=== PATIENT | female | born 1990 | race Caucasian/White ===

== ENCOUNTER 2016-09-05 16:57 | Emergency (ER) | payer SELFPAY ==
[2016-09-05 17:08] VITALS: BP 113/72
--- NOTE | 2016-09-05 17:13 | ER Document Report ---
ED Medical Screen (RME) - General Stated Complaint: FACIAL SWELLING Time seen by provider: 17:12 Mode of Arrival: Ambulatory Information source: Patient Notes: 26-year-old female complaining of a broken tooth with some gingival swelling above. She is complaining of some facial swelling. There is small abscesses above the first bicuspid top left. No fever. TRAVEL OUTSIDE OF THE [place] IN LAST 30 DAYS: No - Related Data Allergies/Adverse Reactions: [place] Juice [From Thickened [place] Juice] Allergy (Severe, Verified 09/12/13 08 :09) Past Medical History - Past Medical History Cardiac Medical History: Denies: Hx Hypertension Endocrine Medical History: Denies: Hx Diabetes Mellitus Type 2, Hx Hyperthyroidism, Hx Hypothyroidism Past Surgical History: Reports: Hx Orthopedic Surgery - Immunizations Hx Diphtheria, Pertussis, Tetanus Vaccination: Yes Physical Exam - Vital signs Vitals: Temp Pulse Resp BP Pulse Ox 98.0 F 70 16 113/72 100 09/05/16 17:07 09/05/16 17:07 09/05/16 17:07 09/05/16 17:07 09/05/16 17:07 Course - Vital Signs Vital signs: Temp Pulse Resp BP Pulse Ox 98.0 F 70 16 113/72 100 09/05/16 17:07 09/05/16 17:07 09/05/16 17:07 09/05/16 17:07 09/05/16 17:07
--- NOTE | 2016-09-05 17:36 | ER Document Report ---
ED Oral Problem - General Mode of Arrival: Ambulatory Information source: Patient TRAVEL OUTSIDE OF THE [place] IN LAST 30 DAYS: No - HPI Patient complains to provider of: Toothache - and associated swelling Onset: Other - 4 days ago Associated symptoms: Other - see above - General Chief Complaint: Facial Swelling Stated Complaint: FACIAL SWELLING Notes: 26 year old female presents to the ED complaining of a broken left upper pre- molar tooth and associated swelling to the gingiva and face that started earlier today. Patient states that she was unaware of the broken tooth and didn' t notice it until 4 days ago. Patient's last menstrual period was 08/26/2016 and states that it was normal and on time. (LINDA CONNER) - Related Data Allergies/Adverse Reactions: [place] Juice [From Thickened [place] Juice] Allergy (Severe, Verified 09/12/13 08 :09) Past Medical History - General Information source: Patient - Social History Smoking Status: Current Every Day Smoker Family History: Thyroid Disfunction Renal/ Medical History: Denies: Hx Peritoneal Dialysis Past Surgical History: Reports: Hx Orthopedic Surgery - right dickinson for a cyst removal - Immunizations Hx Diphtheria, Pertussis, Tetanus Vaccination: Yes Review of Systems - Review of Systems Constitutional: No symptoms reported EENT: See HPI, Mouth pain - left upper molar, Mouth swelling - left upper gingiva and some facial swelling Cardiovascular: No symptoms reported Respiratory: No symptoms reported Gastrointestinal: No symptoms reported Genitourinary: No symptoms reported Female Genitourinary: No symptoms reported Musculoskeletal: No symptoms reported Skin: No symptoms reported Hematologic/Lymphatic: No symptoms reported Neurological/Psychological: No symptoms reported Physical Exam - Vital signs Interpretation: Normal - General General appearance: Alert In distress: None - HEENT Head: Normocephalic, Atraumatic Eyes: Normal Extraocular movements intact: Yes Pupils: PERRL Mouth/Lips: Dental fracture - Posterior aspect of the left upper 3rd molar is broken off, but is non-tender., Other - Left upper 1st pre-molar tooth is tender. Gingiva surrounding the tooth is swollen, no sign of an abscess.. No: Normal - Respiratory Respiratory status: No respiratory distress - Cardiovascular Rhythm: Regular - Abdominal Inspection: Normal - Back Back: Normal - Extremities General upper extremity: Normal inspection, Normal ROM General lower extremity: Normal inspection, Normal ROM - Neurological Neuro grossly intact: Yes - Psychological Associated symptoms: Normal affect, Normal mood - Skin Skin Temperature: Warm Skin Moisture: Dry Skin Color: Normal - Vital signs Vitals: Temp Pulse Resp BP Pulse Ox 98.0 F 70 16 113/72 100 09/05/16 17:07 09/05/16 17:07 09/05/16 17:07 09/05/16 17:07 09/05/16 17:07 (ELDON NEWTON) Discharge - Discharge Clinical Impression: Toothache Additional Instructions: Toothache: Your pain is due to dental decay. The tooth must be repaired in order for you to feel better. You will, therefore, be referred to a dentist. Severe swelling or drainage around a tooth usually means a deep dental abscess. This also requires evaluation and treatment by the dentist, but antibiotics may be prescribed while awaiting dental treatment. You should be rechecked immediately if you develop major swelling of the face, increasing pain, a lump in the jaw or gums, headache, or fever. TAKE THE MEDICATION PRESCRIBED. TAKE MOTRIN 600mg EVERY EIGHT HOURS. FOLLOW UP WITH A DENTIST THIS WEEK. RETURN TO THE EMERGENCY ROOM IF ANY NEW OR WORSENING SYMPTOMS. Prescriptions: Hydrocodone/Acetaminophen [[place] 5-325 mg Tablet] 1 tab PO Q4 PRN #15 tablet PRN Reason: Penicillin V Potassium [Penicillin Vk 500 mg Tablet] 500 mg PO QID #28 tablet Scribe Attestation: 09/05/16 17:38 I personally performed the services described in the documentation, reviewed and edited the documentation which was dictated to the scribe in my presence, and it accurately records my words and actions. (ELDON NEWTON) Scribe Documentation - Scribe Written by Lisa:: Lisa Allen, 09/05/2016 1746 acting as scribe for :: Delio
== END 2016-09-05 17:43 | disposition home or self-care (01) ==
LOC: ER 16:57
DX: K08.89 Other specified disorders of teeth and supporting structures (principal); R22.0 Localized swelling, mass and lump, head; S02.5XXA Fracture of tooth (traumatic), initial encounter for closed fracture; X58.XXXA Exposure to other specified factors, initial encounter; F17.210 Nicotine dependence, cigarettes, uncomplicated
CPT/HCPCS: 99283

== ENCOUNTER → 2018-03-23 | Outpatient (CLI) | payer SELFPAY ==
--- NOTE | 2018-03-23 14:13 | RADIOLOGY REPORT (SQ) ---
EXAM DESCRIPTION: U/S [id number] TRNABD 1GES W/ODOP COMPLETED DATE/TIME: 03/23/2018 1:53 pm REASON FOR STUDY: Z34.81 ENCOUNTER FOR SUPRVSN OF NORMAL , FIRST TRIMESTER Z34.81 ENCOUNTE R FOR SUPRVSN OF NORMAL , FIRST TRIM COMPARISON: None. TECHNIQUE: Transabdominal static and realtime grayscale images acquired of the pelvis. Additional se lected spectral and color Doppler images recorded. All images stored [facility] PACs. [facility]. CLINICAL DATES: LMP is 01/17/2018. 9 weeks 2 days. LIMITATIONS: None. FINDINGS: FETUS: Living intrauterine . ULTRASOUND EGA: 7 weeks 0 days ULTRASOUND NINFA: 11/09/2018 CRL: 1 cm FHR: 157 beats per minute. SUBCHORIONIC BLEED: No SIZE OF BLEED: Not applicable. UTERUS: No masses. No anomalies. CERVICAL LENGTH: Not measured. Closed. RIGHT ADNEXA: Ovary not seen. No adnexal free fluid. No adnexal masses. LEFT ADNEXA: Normal ovary with normal vascular flow. No adnexal free fluid. No adnexal masses. FREE FLUID: None. OTHER: No other significant finding. IMPRESSION: LIVING INTRAUTERINE . EGA 7 weeks 0 days. Trimester of : First - 0 to 13 weeks. TECHNICAL DOCUMENTATION: JOB ID: [id number] [employer]- All Rights Reserved rev Reading location - IP/workstation name: [email or web address]
== END ==
LOC: RAD 12:55
PROVIDERS: ATTEND Nurse Practitioner
DX: Z34.81 Encounter for supervision of other normal pregnancy, first trimester (principal)
CPT/HCPCS: 76801

== ENCOUNTER 2018-06-18 03:03 | Emergency (ER) | payer MEDICAID ==
[2018-06-18 04:16] LABS: APPEARANCE,URINE SLIGHTLY-CLOUDY; BILIRUBIN,URINE NEGATIVE (NEGATIVE); COLOR,URINE STRAW; GLUCOSE, URINE NEGATIVE (NEGATIVE); KETONES,URINE NEGATIVE (NEGATIVE); LEUKOCYTE ESTERASE,URINE TRACE (NEGATIVE); NITRITE,URINE NEGATIVE (NEGATIVE); PROTEIN,URINE NEGATIVE (NEGATIVE); URINE SPECIFIC GRAVITY 1.005; UROBILINOGEN,URINE NEGATIVE mg/dL (<2.0)
--- NOTE | 2018-06-18 04:53 | ER Document Report ---
ED General - General Chief Complaint: OB Problem (<20wks) Stated Complaint: ABDOMINAL PAIN Time Seen by Provider: 06/18/18 03:30 Notes: Patient is a 27-year-old female who presents to the emergency department with abdominal pain and vaginal bleeding after intercourse. She is 19 weeks and 4 days . She denies any foul discharge. Denies dysuria. Thus far she has not had any complications with her . She is receiving care. She states that her abdominal pain feels like a sharp pain that comes and goes. Her pain is on the sides of her abdomen. Her previous she was diagnosed with preeclampsia, in which she was induced at 37 weeks. That was 4 years ago. She denies smoking, drinking, or illicit drug use. TRAVEL OUTSIDE OF THE [place] IN LAST 30 DAYS: No - Related Data Allergies/Adverse Reactions: [place] Juice [From Thickened [place] Juice] Allergy (Severe, Verified 09/12/13 08 :09) Past Medical History - General Information source: Patient - Social History Smoking Status: Never Smoker Frequency of alcohol use: None Drug Abuse: None Family History: Thyroid Disfunction Patient has suicidal ideation: No Patient has homicidal ideation: No - Past Medical History Cardiac Medical History: Denies: Hx Hypertension Endocrine Medical History: Denies: Hx Diabetes Mellitus Type 2, Hx Hyperthyroidism, Hx Hypothyroidism Renal/ Medical History: Denies: Hx Peritoneal Dialysis Past Surgical History: Reports: Hx Orthopedic Surgery - right dickinson for a cyst removal - Immunizations Hx Diphtheria, Pertussis, Tetanus Vaccination: Yes Review of Systems - Review of Systems Notes: REVIEW OF SYSTEMS: CONSTITUTIONAL : Denies recent illness. Denies recent unintentional weight loss. Denies fever, chills, or sweats. EENT: Denies eye, ear, throat, or mouth pain, discharge, or symptoms. Denies nasal or sinus congestion. CARDIOVASCULAR: Denies chest pain. RESPIRATORY: Denies shortness of breath, cough, congestion, difficulty breathing , or wheezing. GASTROINTESTINAL: Denies nausea, vomiting, and diarrhea. Denies abdominal pain. Denies constipation. Last BM: 06/17/2018 GENITOURINARY: Denies difficulty urinating, burning, blood in urine, urgency or frequency. FEMALE GENITOURINARY: See HPI MUSCULOSKELETAL: Denies neck and back pain. Denies joint pain or swelling. SKIN: Denies rash, itchiness, or lesions HEMATOLOGIC : Denies easy bruising or bleeding. LYMPHATIC: Denies swollen, painful, enlarged glands. NEUROLOGICAL: Denies no numbness or tingling denies weakness. Denies headache. Denies altered mental status. Denies alteration in speech. PSYCHIATRIC: Denies stress, anxiety, alteration in sleep patterns, or depression. All other systems reviewed and negative. Physical Exam - Vital signs Vitals: Temp Pulse Resp BP Pulse Ox 98.1 F 85 16 125/66 100 06/18/18 03:07 06/18/18 03:07 06/18/18 03:07 06/18/18 03:07 06/18/18 03:07 - Notes Notes: PHYSICAL EXAMINATION: GENERAL: Appears well, healthy, well-nourished, no acute distress. HEAD: Normocephalic, atraumatic. EYES: PERRL, conjunctiva normal, all extraocular movements intact, sclera nonicteric ENT: Moist mucous membranes. NECK: Supple, no noticeable swelling, redness, rash. Normal range of motion. LUNGS: Equal breath sounds bilaterally and clear to auscultation. No wheezes rales or rhonchi. CARDIOVASCULAR: S1-S2, regular rate, regular rhythm. Radial pulses 2+, normal. ABDOMEN: Noticeably . Normoactive bowel sounds. Soft, nontender, no guarding, no rebound tenderness, and no masses palpated. EXTREMITIES: Normal strength and range of motion, no pitting or edema. No cyanosis. NEUROLOGICAL: Moves all extremities upon command. Strength 5/5 in all extremities. PSYCH: Normal mood, normal affect. SKIN: Warm, dry. No rash, lesions, ulcerations noted. Normal skin turgor. Bedside ultrasound: Intrauterine noted with fetus. cardiac movement noted on ultrasound. Course - Re-evaluation Re-evalutation: Differential diagnosis includes placenta previa, placenta abruptio, post intercourse vaginal bleeding, and urinary tract infection. 06/18/18 05:00 Patient's urinalysis is unremarkable. Her abdominal ultrasound shows a normal intrauterine . There is no placenta previa, placenta abruptio, and her cervix is closed. I suspect her vaginal bleeding is most likely from increased vasculature of her uterus from . Having intercourse might have disrupted some capillaries at her cervix. These findings have been discussed with the patient. She is safe for discharge. Discharge instructions with pelvic precautions were given at bedside. She verbalized understanding. Her next appointment with her RESIDENT CARE PROVIDER is June 23. She states she will discuss this information with her RESIDENT CARE PROVIDER. - Vital Signs Vital signs: Temp Pulse Resp BP Pulse Ox 97.9 F 89 16 104/61 100 06/18/18 05:50 06/18/18 05:50 06/18/18 05:50 06/18/18 05:50 06/18/18 05:50 - Laboratory Laboratory results interpreted by me: 06/18/18 04:00 Ur Leukocyte Esterase TRACE H Discharge - Discharge Clinical Impression: Vaginal bleeding Abdominal pain Qualifiers: Abdominal location: generalized Qualified Code(s): R10.84 - Generalized abdominal pain Condition: Stable Disposition: HOME, SELF-CARE Additional Instructions: You have been seen today for abdominal pain and vaginal bleeding. The most likely cause of your abdominal pain is from your abdomen growing your baby. This is called ligamentous pain. You may take Tylenol 650 mg every 6 hours as needed for the pain. Your vaginal bleeding is most likely from having intercourse tonight. The ultrasound you had tonight showed her is normal. Please follow-up with your RESIDENT CARE PROVIDER at your next appointment. Let them know that you were seen in the emergency department. If you develop a fever greater than 100.4 F, have worsening abdominal pain, have vaginal bleeding that soaks up an entire pad, or have any concerns that are worrisome to you, please return to the emergency department. Also, do not have sex and do not place anything in your vagina until you see your RESIDENT CARE PROVIDER. Forms: Return to Work Referrals: [facility] [Provider Group] - Follow up as needed
--- NOTE | 2018-06-18 05:15 | RADIOLOGY REPORT (SQ) ---
EXAM DESCRIPTION: US LIMITED COMPLETED DATE/TME: 06/18/2018 03:46 CLINICAL HISTORY: 27 years Female, vaginal bleeding Comparison:03/23/2018 TECHNIQUE/LIMITATION: Targeted OB sonogram for requested parameters only. FINDINGS: EGA is 19w4d with NINFA of 11/08/18 EFW is 303g Cardiac activity: 147-bpm. LVP: 4.4-cm, clear Placenta: Anterior. No evidence of abruption. No placenta previa. Cervical length: 4.1-cm. Closed appearance. IMPRESSION: Targeted OB sonogram for requested parameters
[2018-06-18 05:50] VITALS: BP 104/61
== END 2018-06-18 05:50 | disposition home or self-care (01) ==
LOC: ER 03:03
DX: O20.9 Hemorrhage in early pregnancy, unspecified (principal); O26.892 Other specified pregnancy related conditions, second trimester; R10.84 Generalized abdominal pain; Z3A.19 19 weeks gestation of pregnancy; Z87.59 Personal history of other complications of pregnancy, childbirth and the puerperium; Z91.018 Allergy to other foods
CPT/HCPCS: 76815; 81001; 99284

== ENCOUNTER 2018-08-20 10:48 | Emergency (ER) | payer MEDICAID ==
[2018-08-20] MEDS ORDERED: LIDOCAINE 5% (700 MG) TRANSDERMAL ADH..PATCH TP ONE (12:54)
[2018-08-20] MEDS ORDERED: ONDANSETRON 4 MG TAB.RAPDIS PO ONE (12:54)
[2018-08-20] MEDS ORDERED: ACETAMINOPHEN 325 MG TABLET PO ONE (12:55)
--- NOTE | 2018-08-20 13:00 | ER Document Report ---
HPI - HPI Time Seen by Provider: 08/20/18 12:54 Pain Level: 3 Notes: Patient is a 28-year-old female who is approximately 28 weeks who presents to the emergency department complaining of left upper buttock pain, mild low back pain, nasal congestion/discharge, body ache, dry nonproductive cough that began yesterday. Patient states that she is able to eat and drink without difficulty, but does have a decreased p.o. intake. She is urinating normally and having normal bowel movements. She has not had any vaginal discharge, odor, or bleeding. Back pain increased with twisting. On occ she will notice low back pain that will radiate down the left buttock and left prox leg. Patient states that she has not had any history of spinal abscess or any recent injections in her spine. She denies IV drug abuse or other significant past medical history. Denies any headache, fever, neck pain, sore throat, chest pain, palpitations, syncope, shortness of breath, wheeze, dyspnea, abdominal pain, nausea/vomiting/diarrhea, urinary retention, dysuria, hematuria, loss of control of bowel or bladder, numbness/tingling, saddle anesthesia, muscle paralysis/weakness, or rash. - ROS Systems Reviewed and Negative: Yes All other systems reviewed and negative - REPRODUCTIVE Reproductive: REPORTS: : Past Medical History - Social History Smoking Status: Former Smoker Family History: Thyroid Disfunction Patient has suicidal ideation: No Patient has homicidal ideation: No - Past Medical History Cardiac Medical History: Denies: Hx Hypertension Endocrine Medical History: Denies: Hx Diabetes Mellitus Type 2, Hx Hyperthyroidism, Hx Hypothyroidism Renal/ Medical History: Denies: Hx Peritoneal Dialysis Past Surgical History: Reports: Hx Orthopedic Surgery - right dickinson for a cyst removal - Immunizations Hx Diphtheria, Pertussis, Tetanus Vaccination: Yes Vertical Provider Document - CONSTITUTIONAL Agree With Documented VS: Yes Notes: PHYSICAL EXAMINATION: GENERAL: Well-appearing, well-nourished and in no acute distress. A&Ox4. Answers questions appropriately. Moves comfortably w/o notable distress HEAD: Atraumatic, normocephalic. EYES: Pupils equal round and reactive to light, extraocular movements intact, sclera anicteric, conjunctiva are normal. ENT: EAC clear b/l. TM's intact b/l without erythema, fluid, or perforation. Nares patent and with clear discharge. oropharynx no erythema without exudates. No tonsilar hypertrophy without erythema or exudate. No palatine shift. Uvula midline. No tongue protrusion. No drooling, hoarseness, or airway compromise. Moist mucous membranes. No sinus tenderness. NECK: Normal range of motion, supple without lymphadenopathy. No rigidity/meningismus. LUNGS: Breath sounds clear to auscultation bilaterally and equal. No wheezes rales or rhonchi. HEART: Regular rate and rhythm without murmurs, rubs, gallops. ABDOMEN: Soft, nontender, nondistended abdomen. No guarding, no rebound. Normal bowel sounds present. No CVA tenderness bilaterally. Musculoskeletal: LE's b/l: FROM to passive/active. Strength 5+/5. No deficits noted. No bony tenderness of extremities. Back: FROM to passive/active. Strength 5+/5. No vertebral point tenderness, stepoffs, or deformities. No other bony tenderness, erythema, swelling, or ecchymosis. SLR negative b/l. + left SI jt tenderness. No foot drop Extremities: No cyanosis, clubbing, or edema b/l. Peripheral pulses 2+. Capillary refill less than 2 seconds. NEUROLOGICAL: Normal speech, normal gait. Normal sensory, motor exams. Reflexes 2+ b/l. PSYCH: Normal mood, normal affect. SKIN: Warm, Dry, normal turgor, no rashes or lesions noted. - INFECTION CONTROL TRAVEL OUTSIDE OF THE [place] IN LAST 30 DAYS: No Course - Re-evaluation Re-evalutation: 08/20/18 13:55 Patient is an afebrile, well-hydrated, 28-year-old female who presents to the ED with acute low back pain/sacroiliitis, and influenza. Vitals are acceptable. PE is otherwise unremarkable for any focal neurological deficits. Rapid influenza +. Patient was given Tylenol and a Lidoderm patch. UA unremarkable. heart tones appropriate. She has no significant tachycardia, tachypnea, or hypoxia. She is nontoxic-appearing and is tolerating p.o. without difficulties. There are no signs of spinal infection. No other red flag symptoms noted. No other labs or imaging warranted at this time based on H&P. Low suspicion for any meningitis, fracture, expanding/ruptured AAA, cauda equina syndrome, epidural mass lesion/abscess, herniated disc causing severe spinal stenosis, or other systemic infection at this time. Patient is aware that this condition can change from initial presentation and that she needs monitor symptoms closely for any acute changes. Rx for tamiflu. Conservative measures otherwise for symptoms. Recheck with your PCM/OBGYN in 2-3 days. Consider c onsult with orthopedic/physical therapy. Return to the ED with any worsening/concerning symptoms otherwise as reviewed discharge. Patient is in agreement. - Vital Signs Vital signs: Temp Pulse Resp BP Pulse Ox 99.5 F 96 18 121/69 100 08/20/18 11:11 08/20/18 11:11 08/20/18 11:11 08/20/18 11:11 08/20/18 11:11 Discharge - Discharge Clinical Impression: Influenza Low back pain Qualifiers: Chronicity: acute Back pain laterality: bilateral Sciatica presence: unspecified whether sciatica present Qualified Code(s): M54.5 - Low back pain Condition: Stable Disposition: HOME, SELF-CARE Instructions: Low Back Pain ([facility]), Stretching Exercises for the Back ([facility]) Additional Instructions: Maintain adequate fluid intake Take meds as directed tylenol as needed, avoid ibuprofen/aleve rest, ice, heat, massage, light stretches over the counter cold medication as needed for symptoms Humidified air may help Wash your hands regularly Wear a mask when coughing F/u: with your PCM/OBGYN in 3-5 days for a recheck Return to the ED with any worsening symptoms and/or development of fever, headache, chest pain, palpitations, syncope, shortness of breath, trouble breathing, abdominal pain, n/v/d, blood in stool/urine, vaginal bleeding, loss of control of bowel/bladder, urinary retention, muscle weakness/paralysis, saddle anesthesia, numbness/tingling, or other worsening symptoms that are concerning to you. Prescriptions: Oseltamivir Phosphate [Tamiflu 75 mg Capsule] 75 mg PO BID #10 capsule Referrals: DELMAR OSORIO APRN [Primary Care Provider] - 08/22/18 [facility] [Provider Group] - 08/22/18
[2018-08-20 13:38] LABS: APPEARANCE,URINE CLOUDY; BILIRUBIN,URINE NEGATIVE (NEGATIVE); COLOR,URINE YELLOW; GLUCOSE, URINE NEGATIVE (NEGATIVE); KETONES,URINE 80 mg/dL (NEGATIVE); LEUKOCYTE ESTERASE,URINE MODERATE (NEGATIVE); NITRITE,URINE NEGATIVE (NEGATIVE); PROTEIN,URINE 30 mg/dL (NEGATIVE); URINE SPECIFIC GRAVITY 1.019; UROBILINOGEN,URINE NEGATIVE mg/dL (<2.0)
[2018-08-20 13:56] LABS: A TYPE INFLUENZA AG POSITIVE (NEGATIVE); B INFLUENZA AG NEGATIVE (NEGATIVE)
[2018-08-20 14:06] VITALS: BP 106/48
== END 2018-08-20 14:06 | disposition home or self-care (01) ==
LOC: ER 10:48
DX: O99.89 Other specified diseases and conditions complicating pregnancy, childbirth and the puerperium (principal); M46.1 Sacroiliitis, not elsewhere classified; M54.5 Low back pain; O99.519 Diseases of the respiratory system complicating pregnancy, unspecified trimester; J11.1 Influenza due to unidentified influenza virus with other respiratory manifestations; O26.899 Other specified pregnancy related conditions, unspecified trimester; Z3A.00 Weeks of gestation of pregnancy not specified; Z87.891 Personal history of nicotine dependence
CPT/HCPCS: 99283; 87086; 87088; 81001; 87804; J3490 ×2; S0119

== ENCOUNTER 2018-08-31 12:50 | Emergency (ER) | payer MEDICAID ==
[2018-08-31 13:12] VITALS: BP 110/65
[2018-08-31] MEDS ORDERED: LIDOCAINE 4%/TETRACAINE 0.5%/EPI 0.18% 5 ML TOPICAL SOLN TOP ONE (13:30)
--- NOTE | 2018-08-31 14:00 | ER Document Report ---
HPI - HPI Time Seen by Provider: 08/31/18 13:20 Pain Level: 2 Notes: Patient is a 28-year-old female approximately 30 weeks who presents the emergency department complaining of laceration to the left PIP joint 2nd digit of her hand posteriorly. Patient states that this occurred prior to arrival by a knife accidentally. Patient states that she believes she cut off a piece of skin. She otherwise has no other concerns or complaints. The pain does not radiate. She still able to move the finger without difficulty. Denies drug allergies. Denies IV drug abuse. Denies any headache, fever, neck pain, URI, sore throat, chest pain, palpitations, syncope, cough, shortness of breath, wheeze, dyspnea, abdominal pain, nausea/vomiting/diarrhea, urinary retention, dysuria, hematuria, numbness/tingling, muscle paralysis/weakness, or rash. Tetanus up to date. - ROS Systems Reviewed and Negative: Yes All other systems reviewed and negative - REPRODUCTIVE Reproductive: DENIES: : Past Medical History - Social History Smoking Status: Never Smoker Family History: Thyroid Disfunction - Past Medical History Cardiac Medical History: Denies: Hx Hypertension Endocrine Medical History: Denies: Hx Diabetes Mellitus Type 2, Hx Hyperthyroidism, Hx Hypothyroidism Renal/ Medical History: Denies: Hx Peritoneal Dialysis Past Surgical History: Reports: Hx Orthopedic Surgery - right dickinson for a cyst removal - Immunizations Hx Diphtheria, Pertussis, Tetanus Vaccination: Yes Vertical Provider Document - CONSTITUTIONAL Agree With Documented VS: Yes Notes: PHYSICAL EXAMINATION: GENERAL: Well-appearing, well-nourished and in no acute distress. LUNGS: Breath sounds clear to auscultation bilaterally and equal. No wheezes rales or rhonchi. HEART: Regular rate and rhythm without murmurs, rubs, gallops. Musculoskeletal: Left index finger: FROM to passive/active. Strength 5+/5. N/V intact distal. No bony tenderness. Extremities: No cyanosis, clubbing, or edema b/l. Peripheral pulses 2+. Capillary refill less than 3 seconds. NEUROLOGICAL: Normal speech, normal gait. Normal sensory, motor exams PSYCH: Normal mood, normal affect. SKIN: active constant bleeding from the posterior PIP joint left hand 2nd digit, not pulsatile. - INFECTION CONTROL TRAVEL OUTSIDE OF THE [place] IN LAST 30 DAYS: No Course - Re-evaluation Re-evalutation: 08/31/18 13:58 Patient is an afebrile, well-hydrated, 28-year-old female who presents to the emergency department with pain avulsion laceration to the left second digit PIP joint of the hand. Vitals are acceptable without any significant tachycardia, tachypnea, or hypoxia. PE is otherwise unremarkable for any neurovascular compromise, obvious tendon/ligament rupture, obvious fracture/dislocation, septic joint. Pt is able to move her finger through ROM w/o difficulty. Patient is nontoxic-appearing. No labs or imaging warranted at this time based on H&P. Hemostasis was achieved with brief topical LET and silver nitrate with compression dressing and splint in finger extension. Wound instructions reviewed. Conservative measures otherwise for symptoms. Recheck with your PCM in 3-5 days. Consider consult with orthopedics. Return to the ED with any worsening/concerning symptoms otherwise as reviewed in discharge. Patient is in agreement. - Vital Signs Vital signs: Temp Pulse Resp BP Pulse Ox 98.3 F 81 16 110/65 98 08/31/18 13:10 08/31/18 13:10 08/31/18 13:10 08/31/18 13:10 08/31/18 13:10 Procedures - Laceration/Wound Repair Left Finger 2nd digit Time completed: 13:50 Wound length (cm): 1 Wound's Depth, Shape: Superficial, Other - avulsion skin lac Laceration pre-procedure: Sterile PPE donned, Other - chlorhexadine/saline Anesthetic type: Other - brief topical LET Wound explored: Clean, No foreign body removed Wound Repaired With: Other - dressing, quik clot Post-procedure wound care: Splint applied Post-procedure NV exam normal: Yes Complications: No Discharge - Discharge Clinical Impression: Avulsion of skin of finger Qualifiers: Encounter type: initial encounter Qualified Code(s): S61.209A - Unspecified open wound of unspecified finger without damage to nail, initial encounter Condition: Stable Disposition: HOME, SELF-CARE Additional Instructions: Do not wash the area for 48 hours. After 48 hours you may shower but no submersion of the wound under water. Keep the original dressing on the wound for 48 hours unless the drainage soaks through. Change the dressing daily thereafter. You may leave the wound open to the air once there is no more discharge. See your PCM in 3-5 days for a recheck. Monitor for any signs of worsening pain or redness, purulent drainage, streaks, and/or fever. Return to the ED if noticing any of the above symptoms or as needed. Take medications as directed. Prescriptions: Cephalexin Monohydrate [Keflex 500 mg Capsule] 500 mg PO TID #21 capsule Referrals: FABIÁN RUGGIERO MD [Primary Care Provider] - Follow up as needed RIVER MENDOZA DO [ACTIVE STAFF] - Follow up as needed
== END 2018-08-31 14:22 | disposition home or self-care (01) ==
LOC: ER 12:50
PROC: 0HQGXZZ Repair Left Hand Skin, External Approach (ICD-10-PCS; principal; 2018-08-31)
DX: O9A.213 Injury, poisoning and certain other consequences of external causes complicating pregnancy, third trimester (principal); S61.209A Unspecified open wound of unspecified finger without damage to nail, initial encounter; W26.0XXA Contact with knife, initial encounter; Z3A.30 30 weeks gestation of pregnancy
CPT/HCPCS: 99282; 12001; J3490

== ENCOUNTER 2018-09-09 11:11 | Day surgery (SDC) | payer MEDICAID ==
[~2018-09-09 11:11] MED LIST: LIDOCAINE 1% INJ-PF (10 MG/ML) 30 ML SDV ONE
[2018-09-09 11:58] LABS: HEMATOCRIT 34.4 % (36.0-47.0); MEAN CORPUSCULAR HEMOGLOBIN 31.7 pg (27.0-33.4); MEAN CORPUSCULAR VOLUME 91 fl (80-97); PLATELET COUNT 165 10^3/uL (150-450); RED CELL DISTRIBUTION WIDTH 13.8 % (11.5-14.0); WHITE BLOOD COUNT 7.6 10^3/uL (4.0-10.5)
[2018-09-09] MEDS ORDERED: BUPIVACAINE HCL 0.5 % INJ/PF 30 ML SDV ONE (12:00)
[2018-09-09 12:03] LABS: AMORPHOUS SEDIMENT,URINE TRACE /HPF; APPEARANCE,URINE CLOUDY; BILIRUBIN,URINE NEGATIVE (NEGATIVE); GLUCOSE, URINE NEGATIVE (NEGATIVE); KETONES,URINE 20 mg/dL (NEGATIVE); LEUKOCYTE ESTERASE,URINE LARGE (NEGATIVE); NITRITE,URINE NEGATIVE (NEGATIVE); PROTEIN,URINE NEGATIVE (NEGATIVE); URINE SPECIFIC GRAVITY 1.018; UROBILINOGEN,URINE NEGATIVE mg/dL (<2.0)
[2018-09-09] MEDS ORDERED: MIDAZOLAM 2 MG/2 ML INJ ONE (12:03)
[2018-09-09] MEDS ORDERED: ONDANSETRON HCL INJ/PF 4 MG/2 ML SDV ONE (12:03)
[2018-09-09] MEDS ORDERED: PROPOFOL INJ 200 MG/20 ML VIAL IV ONE (12:03)
[2018-09-09] MEDS ORDERED: ACETAMINOPHEN 1,000 MG/100 ML RTUPB IV ONE (12:03)
[2018-09-09] MEDS ORDERED: FENTANYL CITRATE INJ/PF 100 MCG/2 ML AMPUL ONE (12:03)
[2018-09-09 12:12] LABS: COLOR,URINE YELLOW
[2018-09-09 12:16] LABS: ANION GAP 7 (5-19); BLOOD UREA NITROGEN 8 mg/dL (7-20); CALCIUM 8.8 mg/dL (8.4-10.2); CARBON DIOXIDE 24 mmol/L (22-30); CHLORIDE 107 mmol/L (98-107); GLUCOSE 72 mg/dL (75-110); SODIUM 138.4 mmol/L (137-145)
[2018-09-09] MEDS ORDERED: LIDOCAINE 0.5% INJ-PF (5 MG/ML) 50 ML SDV ONE (12:27)
[2018-09-09] MEDS ORDERED: CEFAZOLIN 2 GM/D5W RTU 2 GM/50 ML RTUPB IV ONE (12:59)
[2018-09-09] MEDS ORDERED: FENTANYL CITRATE INJ/PF 100 MCG/2 ML AMPUL IV PRN ×3 (13:08)
[2018-09-09] MEDS ORDERED: MEPERIDINE HCL/PF INJ 25 MG/1 ML DISP.SYRIN IV PRN (13:08)
[2018-09-09] MEDS ORDERED: DIPHENHYDRAMINE HCL 50 MG/ML VIAL IV PRN (13:08)
[2018-09-09] MEDS ORDERED: PROMETHAZINE HCL INJ 25 MG/1 ML VIAL IV PRN ×2 (13:08)
[2018-09-09] MEDS ORDERED: ONDANSETRON HCL INJ/PF 4 MG/2 ML SDV IV PRN (13:08)
[2018-09-09] MEDS: FENTANYL CITRATE INJ/PF 100 MCG/2 ML AMPUL ONE ×2 (13:40→13:50)
--- NOTE | 2018-09-09 13:46 | Operative Report ---
Operative Report DATE OF SURGERY: 09/09/18 PREOPERATIVE DIAGNOSIS: Left Index Finger Laceration POSTOPERATIVE DIAGNOSIS: Left Index Finger w/ Extensor Tendon Laceration PIPJ Traumatic Arthrotomy OPERATION: Irrigation debridement left index finger PIP joint with extensor t endon repair ANESTHESIA: LMAC COMPLICATIONS: None ESTIMATED BLOOD LOSS: Minimal PROCEDURE: Indication for above procedure: 28-year-old female who sustained a self inflicted laceration to the PIP joint of the index finger. Patient was seen in the emergency room where area was irrigated and quick clot placed. Upon follow-up patient had increasing redness swelling and drainage from the wound with extension lag. At that point we discussed treatment options including operative versus nonoperative intervention. Risks and benefits were explained patient verbalized understanding consented for the surgery procedure. Procedure In Detail: Patient was seen and evaluated in the preoperative holding area. The RIGHT upper extremity was initialized and marked. Patient received 2g of Ancef IV for bacterial prophylaxis. Patient was taken back to the operative room where transferred to the operative table. A surgical team debriefing was performed ensuring all instrumentation was available, the surgical procedure was discussed with possible concerns reviewed. A digital block was performed utilizing 10 mL of 1% lidocaine without epinephrine. The upper extremity was prepped with Betadine and draped in a sterile fashion. A timeout was done identifying correct patient, procedure and extremity everyone in attendance agree with this and verbalized no concerns. Digital tourniquet was placed. Incision was extended proximally and distally. Nonviable skin was excised. There was serosanguineous drainage. Laceration involved central 30% of the central slip with traumatic arthrotomy to be of the PIP joint. The PIP joint was copiously irrigated with normal saline. Any remaining nonviable tissue was excised. There is no evidence of foreign body or bony involvement. The extensor mechanism involved the central 30% this was debrided and reapproximated with [id number] 3-0 Vicryl suture. Wound was once again copiously irrigated with normal saline. Incision was reapproximated with 4-0 nylon suture. Postoperative plan: Patient will follow-up as scheduled for wound check. They will call with any questions or concerns.
--- NOTE | 2018-09-09 13:47 | Discharge Summary ---
Discharge Summary (SDC) - Discharge Final Diagnosis: Left index extensor tendon laceration Date of Surgery: 09/09/18 Discharge Date: 09/09/18 Condition: Good Treatment or Instructions: Schedule Follow Up w/ Dr. Richar Chavez @ [facility] for Surgery to be seen in 10-14 days or as scheduled [place]: [place]: Gate: May remove dressing on postop day #3, keep incision covered and dry. Ice and elevate May begin finger range of motion attempting to make full fist. Referrals: FABIÁN RUGGIERO MD [Primary Care Provider] - Discharge Diet: As Tolerated Respiratory Treatments at Home: Deep Breathing/Coughing Discharge Activity: No Lifting Over 10 Pounds, No Lifting/Push/Pulling Report the Following to Your Physician Immediately: Fever over 101 Degrees, Unusual Bleeding, Redness, Swelling, Warmth, Increased Soreness
[2018-09-09 16:55] VITALS: BP 110/65
== END 2018-09-09 15:40 | disposition home or self-care (01) ==
LOC: OROUT 11:11
PROVIDERS: ATTEND Orthopaedic Surgery
DX: S66.321A Laceration of extensor muscle, fascia and tendon of left index finger at wrist and hand level, initial encounter (principal); X58.XXXA Exposure to other specified factors, initial encounter; O9A.213 Injury, poisoning and certain other consequences of external causes complicating pregnancy, third trimester; Z3A.31 31 weeks gestation of pregnancy; Z87.891 Personal history of nicotine dependence; Z01.818 Encounter for other preprocedural examination
CPT/HCPCS: 11043; 36415; 85027; 80048; 81001; J3010; J3490 ×2; J2405; J2704; J0690; J0131; 1810; J2250

== ENCOUNTER 2018-09-21 21:05 | Outpatient (CLI) | payer MEDICAID ==
[2018-09-21 21:56] LABS: APPEARANCE,URINE SLIGHTLY-CLOUDY; BILIRUBIN,URINE NEGATIVE (NEGATIVE); COLOR,URINE YELLOW; GLUCOSE, URINE NEGATIVE (NEGATIVE); KETONES,URINE NEGATIVE (NEGATIVE); LEUKOCYTE ESTERASE,URINE NEGATIVE (NEGATIVE); NITRITE,URINE NEGATIVE (NEGATIVE); PROTEIN,URINE NEGATIVE (NEGATIVE); URINE SPECIFIC GRAVITY 1.016; UROBILINOGEN,URINE NEGATIVE mg/dL (<2.0)
[2018-09-21 22:08] LABS: URINE AMPHETAMINES SCREEN NEGATIVE; URINE BARBITURATES SCREEN NEGATIVE; URINE BENZODIAZEPINES SCREEN NEGATIVE; URINE COCAINE SCREEN NEGATIVE; URINE MARIJUANA (THC) SCREEN NEGATIVE; URINE METHADONE SCREEN NEGATIVE; URINE PHENCYCLIDINE SCREEN NEGATIVE
== END 2018-09-21 23:06 | disposition home or self-care (01) ==
LOC: LC 21:05
PROVIDERS: ATTEND Obstetrics & Gynecology
PROC: 4A1HXCZ Monitoring of Products of Conception, Cardiac Rate, External Approach (ICD-10-PCS; principal; 2018-09-21)
DX: Z34.93 Encounter for supervision of normal pregnancy, unspecified, third trimester (principal)
CPT/HCPCS: 80307; 81001

== ENCOUNTER 2018-10-24 20:40 | Outpatient (CLI) | payer MEDICAID ==
[2018-10-24 21:32] LABS: APPEARANCE,URINE SLIGHTLY-CLOUDY; BILIRUBIN,URINE NEGATIVE (NEGATIVE); COLOR,URINE YELLOW; GLUCOSE, URINE NEGATIVE (NEGATIVE); KETONES,URINE NEGATIVE (NEGATIVE); LEUKOCYTE ESTERASE,URINE NEGATIVE (NEGATIVE); NITRITE,URINE NEGATIVE (NEGATIVE); PROTEIN,URINE NEGATIVE (NEGATIVE); URINE SPECIFIC GRAVITY 1.017; UROBILINOGEN,URINE NEGATIVE mg/dL (<2.0)
[2018-10-24 21:53] LABS: ABSOLUTE EOSINOPHILS # (AUTO) 0.1 10^3/uL (0.0-0.6); ABSOLUTE LYMPHOCYTES (AUTO) 1.6 10^3/uL (0.5-4.7); ABSOLUTE MONOCYTES (AUTO) 0.6 10^3/uL (0.1-1.4); ABSOLUTE NEUT (AUTO) 5.1 10^3/uL (1.7-8.2); BASOPHILS % (AUTO) 0.1 % (0-2); HEMATOCRIT 32.7 % (36.0-47.0); HEMOGLOBIN 11.4 g/dL (12.0-15.5); LYMPHOCYTES % (AUTO) 21.2 % (13-45); MEAN CORPUSCULAR HEMOGLOBIN 31.4 pg (27.0-33.4); MEAN CORPUSCULAR HGB CONC 34.8 g/dL (32.0-36.0); MEAN CORPUSCULAR VOLUME 90 fl (80-97); MONOCYTES % (AUTO) 8.6 % (3-13); PLATELET COUNT 169 10^3/uL (150-450); RED BLOOD COUNT 3.61 10^6/uL (3.72-5.28); RED CELL DISTRIBUTION WIDTH 13.3 % (11.5-14.0); SEGMENTED NEUTROPHILS % (AUTO) 69.1 % (42-78); TOTAL CELLS COUNTED % (AUTO) 100 %; WHITE BLOOD COUNT 7.4 10^3/uL (4.0-10.5)
[2018-10-24 21:55] LABS: URINE AMPHETAMINES SCREEN NEGATIVE; URINE BARBITURATES SCREEN NEGATIVE; URINE BENZODIAZEPINES SCREEN NEGATIVE; URINE COCAINE SCREEN NEGATIVE; URINE MARIJUANA (THC) SCREEN NEGATIVE; URINE METHADONE SCREEN NEGATIVE; URINE PHENCYCLIDINE SCREEN NEGATIVE
[2018-10-24 21:58] LABS: UR PRO/CREAT RATIO RESULT 0.1 mg/mg (0.0-0.2); URINE CREATININE 96.1 mg/dL (16-327)
[2018-10-24 22:15] LABS: ALANINE AMINOTRANSFERASE 14 U/L (9-52); ALKALINE PHOSPHATASE 109 U/L (38-126); ANION GAP 6 (5-19); ASPARTATE AMINO TRANSFERASE 20 U/L (14-36); BILIRUBIN,DIRECT 0.2 mg/dL (0.0-0.4); BILIRUBIN,TOTAL 0.3 mg/dL (0.2-1.3); BLOOD UREA NITROGEN 10 mg/dL (7-20); CALCIUM 9.4 mg/dL (8.4-10.2); CARBON DIOXIDE 22 mmol/L (22-30); CHLORIDE 106 mmol/L (98-107); GLUCOSE 114 mg/dL (75-110); POTASSIUM 3.6 mmol/L (3.6-5.0); SODIUM 134.1 mmol/L (137-145); TOTAL PROTEIN 5.5 g/dL (6.3-8.2); URIC ACID 3.3 mg/dL (2.5-6.2)
[2018-10-24] MEDS ORDERED: BUTALB/ACETAMINOPHEN/CAFFEINE 1 TAB EACH PO ONE (22:29)
[2018-10-24] MEDS ORDERED: BUTALB/ACETAMINOPHEN/CAFFEINE 1 TAB EACH ONE (22:31)
== END 2018-10-24 22:43 | disposition home or self-care (01) ==
LOC: LC 20:40
PROVIDERS: ATTEND Obstetrics & Gynecology
PROC: 4A1HXCZ Monitoring of Products of Conception, Cardiac Rate, External Approach (ICD-10-PCS; principal; 2018-10-24)
DX: O47.1 False labor at or after 37 completed weeks of gestation (principal); O36.8130 Decreased fetal movements, third trimester, not applicable or unspecified; Z3A.37 37 weeks gestation of pregnancy
CPT/HCPCS: 59025; 36415; 83615; 84156; 84550; 82570; 85025; 80053; 81001; 80307; J3490

== ENCOUNTER 2018-11-09 08:38 | Inpatient (IN) | payer MEDICAID ==
[2018-11-09 09:07] LABS: APPEARANCE,URINE SLIGHTLY-CLOUDY; BILIRUBIN,URINE NEGATIVE (NEGATIVE); COLOR,URINE YELLOW; GLUCOSE, URINE NEGATIVE (NEGATIVE); KETONES,URINE NEGATIVE (NEGATIVE); LEUKOCYTE ESTERASE,URINE TRACE (NEGATIVE); NITRITE,URINE NEGATIVE (NEGATIVE); PROTEIN,URINE NEGATIVE (NEGATIVE); URINE SPECIFIC GRAVITY 1.014; UROBILINOGEN,URINE NEGATIVE mg/dL (<2.0)
[2018-11-09 09:36] LABS: URINE AMPHETAMINES SCREEN NEGATIVE; URINE BARBITURATES SCREEN NEGATIVE; URINE BENZODIAZEPINES SCREEN NEGATIVE; URINE COCAINE SCREEN NEGATIVE; URINE MARIJUANA (THC) SCREEN NEGATIVE; URINE METHADONE SCREEN NEGATIVE; URINE PHENCYCLIDINE SCREEN NEGATIVE
[2018-11-09 14:23] LABS: ABSOLUTE LYMPHOCYTES (AUTO) 1.2 10^3/uL (0.5-4.7); ABSOLUTE MONOCYTES (AUTO) 0.6 10^3/uL (0.1-1.4); ABSOLUTE NEUT (AUTO) 8.8 10^3/uL (1.7-8.2); BASOPHILS % (AUTO) 0.4 % (0-2); EOSINOPHILS % (AUTO) 0.2 % (0-6); HEMATOCRIT 36.2 % (36.0-47.0); HEMOGLOBIN 12.4 g/dL (12.0-15.5); LYMPHOCYTES % (AUTO) 11.1 % (13-45); MEAN CORPUSCULAR HEMOGLOBIN 30.9 pg (27.0-33.4); MEAN CORPUSCULAR HGB CONC 34.3 g/dL (32.0-36.0); MEAN CORPUSCULAR VOLUME 90 fl (80-97); MONOCYTES % (AUTO) 5.8 % (3-13); PLATELET COUNT 153 10^3/uL (150-450); RED BLOOD COUNT 4.03 10^6/uL (3.72-5.28); SEGMENTED NEUTROPHILS % (AUTO) 82.5 % (42-78); TOTAL CELLS COUNTED % (AUTO) 100 %; WHITE BLOOD COUNT 10.7 10^3/uL (4.0-10.5)
--- NOTE | 2018-11-09 14:43 | Admission Physical ---
Datetime Report Generated by CPN: 11/09/2018 14:42 CURRENT ADMISSION Hx Assessment: The History has been Reviewed and is Current Chief Complaint: Uterine Contractions Indication for Induction: Not Applicable Admit Impression : Term, Intrauterine Admit Plan: Admit to Unit; Initiate Labor Protocol ALLERGIES Medication Allergies: No Medication Allergies: Sully Juice/SV (09/08/2018) Latex: No Latex Allergies Food Allergies: orange juice OBSTETRICAL HISTORY EDC: 11/11/2018 00:00 : 2 Para: 1 Term: 0 : 0 SAB: 0 IAB: 0 Ectopic: 0 Livin Cesareans: 0 VBACs: 0 Multiple Births: 0 Gestational Diabetes: No Rh Sensitization: No Incompetent Cervix: No MARKY: No Infertility: No ART Treatment: No Uterine Anomaly: No IUGR: No Hx Previous C/S: No Macrosomia: No Hx Loss/Stillborn: No PIH: No Hx : No Placenta Previa/Abruption: No Depression/PP Depression: No PTL/PROM: No Post Hemorrhage: No Obstetrical History Comments: G1: 2011 39 weeks, male 7lbs 7oz G2: current SEE RECORDS Alcohol: No Marijuana : No Cocaine: No Other Illicit Drugs: No Cigarettes: Former Smoker. [id number] MEDICAL HISTORY Diabetes: No Blood Transfusion: No Pulmonary Disease (Asthma, TB): No Breast Disease: No Hypertension: No Psychology Teacher Surgery: No Heart Disease: No Hosp/Surgery: No Autoimmune Disorder: No Anesthetic Complications: No Kidney Disease: No Abnormal Pap Smear: No Neuro/Epilepsy: No Psychiatric Disorders: No Other Medical Diseases: No Hepatitis/Liver Disease: No Significant Family History: No Varicosities/Phlebitis: No Trauma/Violence : No Thyroid Dysfunction: No INFECTIOUS HISTORY Gonorrhea: No Genital Herpes: No Chlamydia: Yes Tuberculosis: No Syphilis: No Hepatitis: No HIV/AIDS Exposure: No Rash or Viral Illness: No HPV: No Infectious History Comments: chlamydia 2017 tested to cure PHYSICAL EXAM General: Normal Neurologic: Normal Heart: Normal Lungs: Normal Breast: Normal Back: Normal Abdomen: Normal Extremities: Normal Pelvic Type: Adequate Physical Exam Comments: proven to 7lbs 7oz Vital Signs: Reviewed; Within Normal Limits VAGINAL EXAM Dilatation: 4 Effacement: 90 Station: -2 Contraction Comments: q4 MEMBRANES Membranes: Bulging FETUS A EGA: 37.3 Monitoring: External US FHR- Baseline: 125 Variability: Moderate 6-25bpm Accelerations: 15X15 Presentation: Vertex Admit Comment: 28yo into L_D with contractions, found to have cervical change and admitted in labor. Denies any concerns at this time. Pt. is A positive, RI, GBS neg with hx of shoulder dystocia with first baby 4yrs ago. Elevated 1hr but normal 3hr gtt. Plan is to obtain an epidural for pain control at this time. Agreeable to AROM after epidural placement, anticipate delivery. PLANS FOR LABOR AND DELIVERY Labor and Delivery: None Pain Management: Epidural Feeding Preference: Breast Benefit of Breast Feed Discussed: Yes Circumcision: N/A INFORMED CONSENT Assignment: Chanel Verduzco MD Signature: with User ID: [email or web address] : with User ID: [email or web address]
[2018-11-09] MEDS ORDERED: LIDOCAINE 1% INJ-PF (10 MG/ML) 30 ML SDV ONE (15:11)
[2018-11-09] MEDS ORDERED: FENTANYL/BUPIVACAINE/NS/PF 300 MCG/150 ML RTUINJ EPI ONE (15:11)
[2018-11-09] MEDS ORDERED: OXYTOCIN/NORMAL SALINE 20 UNIT/1,000 ML RTUINJ ONE (15:11)
[2018-11-09] MEDS ORDERED: EPHEDRINE SULFATE INJ 50 MG/1 ML AMPULE ONE (15:11)
[2018-11-09] MEDS ORDERED: BUPIVACAINE HCL 0.25 % INJ/PF (2.5 MG/1 ML) 30 ML VIAL ONE (15:11)
[2018-11-09] MEDS ORDERED: MISOPROSTOL 0.2 MG TABLET ONE (15:11)
[2018-11-09] MEDS ORDERED: LIDOCAINE 2% INJ-PF (20 MG/ML) 2 ML AMPUL ONE ×2 (20:04→20:14)
[2018-11-09] MEDS ORDERED: DIPHENHYDRAMINE HCL 25 MG CAPSULE PO PRN (20:11)
[2018-11-09] MEDS ORDERED: DIBUCAINE 1% OINTMENT 56 GM TP PRN (20:11)
[2018-11-09] MEDS ORDERED: PROMETHAZINE HCL INJ 25 MG/1 ML VIAL IV PRN (20:11)
[2018-11-09] MEDS ORDERED: MEASLES,MUMPS&RUBELLA VACC/PF 0.5 ML VIAL SUBCUT PRN (20:11)
[2018-11-09] MEDS ORDERED: PSEUDOEPHEDRINE HCL 30 MG TABLET PO PRN (20:11)
[2018-11-09] MEDS ORDERED: NA PHOS,M-B/NA PHOS,DI-BA (ADULT) 133 ML ENEMA PR PRN (20:11)
[2018-11-09] MEDS ORDERED: MAGNESIUM HYDROXIDE SUSP 30 ML UDCUP PO PRN (20:11)
[2018-11-09] MEDS ORDERED: ZOLPIDEM TARTRATE 5 MG TABLET PO PRN (20:11)
[2018-11-09] MEDS ORDERED: ACETAMINOPHEN WITH CODEINE #3 TABLET PO PRN (20:11)
[2018-11-09] MEDS ORDERED: BENZOCAINE/MENTHOL AEROSOL SPRAY 56 ML TOP PRN (20:11)
[2018-11-09] MEDS ORDERED: OXYTOCIN/NORMAL SALINE 20 UNIT/1,000 ML RTUINJ IV PRN (20:11)
[2018-11-09] MEDS ORDERED: GLYCERIN/WITCH HAZEL LEAF 1 EACH MED..PAD TP PRN (20:11)
[2018-11-09] MEDS ORDERED: PROMETHAZINE HCL 25 MG SUPP.RECT PR PRN (20:11)
[2018-11-09] MEDS ORDERED: PROMETHAZINE HCL 25 MG TABLET PO PRN (20:11)
[2018-11-09] MEDS ORDERED: DIPH/PERTUSS(ACELL)/TETANUS VAC/PF 0.5 ML SYR (>=10YO) IM PRN (20:11)
[2018-11-09] MEDS ORDERED: ACETAMINOPHEN 650 MG SUPP.RECT PR PRN (20:11)
[2018-11-09] MEDS ORDERED: IBUPROFEN 800 MG TABLET ONE (21:39)
[2018-11-09] MEDS ORDERED: ACETAMINOPHEN 325 MG TABLET ONE (22:45)
--- NOTE | 2018-11-09 23:14 | Delivery Summary ---
Del Sum A-C Datetime Report Generated by CPN: 11/09/2018 23:14 DELIVERY PERSONNEL DELIVERY PERSONNEL: [id number] Delivery Doctor:: Chanel Verduzco MD Labor and Delivery Nurse:: Zaria Singer RNwash box operator Nurse:: Marbella Calabrese RN Steward/Stewardess Room/MATERIAL DISPOSITION INSPECTOR: Traci Green, ST MATERNAL INFORMATION Delivery Anesthesia: Epidural Medications After Delivery: Pitocin Drip 20 Units/1000ml NSS Estimated Blood Loss (ml): 250 Maternal Complications: None LABOR SUMMARY EDC: 11/11/2018 00:00 No. Babies in Womb: 1 Attempted: No Labor Anesthesia: Epidural LABOR INFORMATION Reason for Induction: Not Applicable Onset of Labor: 11/09/2018 13:17 Complete Dilatation: 11/09/2018 20:55 Oxytocin: N/A Group B Beta Strep: negative Antibiotics # of Doses: 0 Antibiotics Time of Last Dose: N/A Name of Antibiotic Given: N/A Steroids Given: None Reason Steroids Not Administered: Not Applicable MEMBRANES Membranes Rupture Method: Artificial Rupture of Membranes: 11/09/2018 15:10 Length of Rupture (hr): 6.32 Amniotic Fluid Color: Clear Amniotic Fluid Amount: Moderate Amniotic Fluid Odor: Normal STAGES OF LABOR Stage 1 hr: 7 Stage 1 min: 38 Stage 2 hr: 0 Stage 2 min: 34 Stage 3 hr: 0 Stage 3 min: 4 Total Time in Labor hr: 8 Total Time in Labor min: 16 VAGINAL DELIVERY Episiotomy: None Laceration #1: None Laceration Extension #1: N/A Laceration #2: None Laceration Extension #2: N/A Laceration #3: None Laceration Extension #3: N/A Laceration Repair: Not Applicable Sponge Count Correct: Yes; Vaginal Sweep Performed Sharps Count Correct: Yes CSECTION DELIVERY Primary Indication: N/A Secondary Indication: N/A CSection Incidence: N/A Labor: N/A Elective: N/A CSection Incision: N/A BABY A INFORMATION Infant Delivery Date/Time: 11/09/2018 21:29 Method of Delivery: Vaginal Born in Route : No : N/A Forceps: N/A Vacuum Extraction: N/A Shoulder Dystocia : No PRESENTATION/POSITION BABY A Presentation: Cephalic Cephalic Presentation: Vertex Vertex Position: Left Occipital Anterior Breech Presentation: N/A PLACENTA INFORMATION BABY A Placenta Delivery Time : 11/09/2018 21:33 Placenta Method of Delivery: Spontaneous Placenta Status: Delivered SCORES BABY A Heart Rate 1 min: >100 bpm Resp Effort 1 min: Good Cry Reflex Irritability 1 min: Cough or Sneeze or Pulls Away Muscle Tone 1 min: Active Motion Color 1 min: Blue/Pale SCORE 1 MIN: 8 Heart Rate 5 min: >100 bpm Resp Effort 5 min: Good Cry Reflex Irritability 5 min: Cough or Sneeze or Pulls Away Muscle Tone 5 min: Active Motion Color 5 min: Body [place], Extremities Blue SCORE 5 MIN: 9 INFORMATION BABY A Gestational Age at Delivery: 39.5 Gestational Status: Full Term- 39- 40.6 Weeks Outcome : Liveborn Infant Condition : Stable Infant Sex: Female IDENTIFICATION BABY A Infant Verification Date/Time: 11/09/2018 22:01 ID Band Number: [id number] Mother's Name Verified: Yes Infant RN Verifying Infant: Chacorta Singer RN/ CNathen Vargas RN WEIGHT/LENGTH BABY A Birthweight (gm): 3355 Infant Weight (lb): 7 Weight (oz): 6 Infant Length (in): 20.00 Length (cm): 50.80 CORD INFORMATION BABY A No. Cord Vessels: 3 Nuchal Cord : N/A Cord Blood Taken: Yes-For Storage (Mom's Blood type +) Suction: None ASSESSMENT BABY A Infant Complications: None Physical Findings at Delivery: Within Normal Limits Respirations: Appears Normal Skin to Skin: Yes Transferred To: Remains with Mother BABY B INFORMATION : N/A SIGNATURES Signature: with User ID: [email or web address]
[2018-11-10] MEDS: IBUPROFEN 800 MG TABLET PO SCH ×4 (00:05→22:13)
[2018-11-10] MEDS: FAMOTIDINE 20 MG TABLET PO SCH ×3 (00:05→22:28)
[2018-11-10 07:20] LABS: HEMATOCRIT 31.6 % (36.0-47.0); HEMOGLOBIN 10.9 g/dL (12.0-15.5); MEAN CORPUSCULAR HGB CONC 34.6 g/dL (32.0-36.0); MEAN CORPUSCULAR VOLUME 90 fl (80-97); PLATELET COUNT 144 10^3/uL (150-450); RED BLOOD COUNT 3.52 10^6/uL (3.72-5.28); RED CELL DISTRIBUTION WIDTH 13.7 % (11.5-14.0); WHITE BLOOD COUNT 16.1 10^3/uL (4.0-10.5)
[2018-11-10] MEDS: FERROUS SULFATE 325 MG TABLET PO SCH ×2 (09:43→17:29)
[2018-11-10] MEDS: SENNOSIDES/DOCUSATE 8.6-50 MG 1 EACH TABLET PO SCH (09:43)
[2018-11-10] MEDS: DOCUSATE SODIUM 100 MG CAPSULE PO SCH ×2 (09:43→17:29)
[2018-11-10] MEDS: PRENATAL VITAMIN W DHA CAPSULE PO SCH (09:43)
[2018-11-10] MEDS: ACETAMINOPHEN WITH CODEINE #3 TABLET PO PRN (09:51)
--- NOTE | 2018-11-10 10:53 | PDOC PROGRESS REPORT ---
Subjective-OB Progress Note for:: 11/10/18 Physical Exam (OB) Vital Signs: Temp Pulse Resp BP Pulse Ox 98.1 F 69 16 133/83 H 100 11/10/18 09:14 11/10/18 09:14 11/10/18 09:14 11/10/18 09:14 11/10/18 09:14 Intake & Output 11/09/18 11/10/18 11/11/18 06:59 06:59 06:59 Intake Total 400 Output Total 1565 Balance -1565 400 Weight 78.7 kg - PIH/Pre-Eclampsia DTR's: 2 + Clonus: Negative Headache: Absent Epigastric Pain: No Visual Changes: No - Lochia Lochia Amount: Scant < 10 ml Lochia Color: Rubra/Red - Abdomen Description: Soft Hernia Present: No Bowel Sounds: Normoactive Flatus Presence: Present Stool: No Fundal Description: Firm Describe if Not Midline: shifted right Fundal Height: u/u - u/2 Objective-Diagnostic Laboratory: 11/10/18 06:57 11/09/18 11/09/18 11/10/18 13:56 13:56 06:57 WBC 10.7 H 16.1 H RBC 4.03 3.52 L Hgb 12.4 10.9 L Hct 36.2 31.6 L MCV 90 90 MCH 30.9 31.0 MCHC 34.3 34.6 RDW 14.0 13.7 Plt Count 153 144 L Seg Neutrophils % 82.5 H Lymphocytes % 11.1 L Monocytes % 5.8 Eosinophils % 0.2 Basophils % 0.4 Absolute Neutrophils 8.8 H Absolute Lymphocytes 1.2 Absolute Monocytes 0.6 Absolute Eosinophils 0.0 Absolute Basophils 0.0 Blood Type A POSITIVE Antibody Screen NEGATIVE
[2018-11-11] MEDS: IBUPROFEN 800 MG TABLET PO SCH (05:43)
--- NOTE | 2018-11-11 07:36 | PDOC DISCHARGE SUMMARY ---
Final Diagnosis Discharge Date: 11/11/18 - Final Diagnosis (1) Delivery normal Is this a current diagnosis for this admission?: Yes Discharge Data - Discharge Medication Home Medications: No.137/Iron/Folic Acd [ Tablet] 1 tab PO DAILY 09/12/13 Reason(s) for Admission: Onset of Labor Procedures: NST Intrapartum Procedure(s): Spontaneous Vaginal Delivery - Diagnosis Test Laboratory: Temp Pulse Resp BP Pulse Ox 98.6 F 88 16 142/81 H 100 11/10/18 19:36 11/10/18 19:36 11/10/18 19:36 11/10/18 19:36 11/10/18 19:36 11/09/18 11/09/18 11/10/18 08:45 13:56 06:57 RBC 4.03 3.52 L Hgb 12.4 10.9 L Hct 36.2 31.6 L Urine Opiates Screen NEGATIVE - Discharge information/Instructions Discharge Activity: Balance Activity w/Rest, Pelvic Rest Discharge Diet: Regular Disposition: HOME, SELF-CARE Follow up with: [facility] in: 4, Weeks
[2018-11-11 08:11] VITALS: BP 130/70
[2018-11-11] MEDS: PRENATAL VITAMIN W DHA CAPSULE PO SCH (10:08)
[2018-11-11] MEDS: SENNOSIDES/DOCUSATE 8.6-50 MG 1 EACH TABLET PO SCH (10:08)
[2018-11-11] MEDS: DOCUSATE SODIUM 100 MG CAPSULE PO SCH (10:09)
[2018-11-11] MEDS: FERROUS SULFATE 325 MG TABLET PO SCH (10:09)
[2018-11-11] MEDS: ACETAMINOPHEN WITH CODEINE #3 TABLET PO PRN (10:13)
== END 2018-11-11 10:57 | disposition home or self-care (01) | DRG 807 ==
LOC: LC 08:38 → LR 13:25 → 2S 23:28
PROVIDERS: ADMIT Obstetrics & Gynecology; ATTEND Obstetrics & Gynecology
PROC: 10E0XZZ Delivery of Products of Conception, External Approach (ICD-10-PCS; principal; 2018-11-09)
PROC: 10907ZC Drainage of Amniotic Fluid, Therapeutic from Products of Conception, Via Natural or Artificial Opening (ICD-10-PCS; 2018-11-09)
DX: O80 Encounter for full-term uncomplicated delivery (principal); Z37.0 Single live birth; Z3A.37 37 weeks gestation of pregnancy; Z91.018 Allergy to other foods; Z87.891 Personal history of nicotine dependence
CPT/HCPCS: 36415; 80307; 81005; 85025; 85027; 86592; 86850; 86900; 86901; 94760; J2590; J3010; J3490

== ENCOUNTER 2019-06-27 18:09 | Emergency (ER) | payer OTHER ==
[2019-06-27 18:21] VITALS: BP 117/74
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
== END 2019-06-27 19:42 | disposition home or self-care (01) ==
LOC: ER 18:09
DX: M54.6 Pain in thoracic spine (principal); M54.2 Cervicalgia; V87.7XXA Person injured in collision between other specified motor vehicles (traffic), initial encounter
CPT/HCPCS: 99283